=== PATIENT | female | born 1965 | race Caucasian/White ===

== ENCOUNTER 2020-04-21 10:26 | Outpatient (CLI) | payer BC, SELFPAY ==
--- NOTE | ~2020-04-21 | MM_ITS ---
EXAMINATION: MM screening [facility] BI w henry HISTORY: Screening mammogram TECHNIQUE: Craniocaudal and mediolateral oblique 3-D tomosynthesis images were obtained and synthetic 2-D images were generated. CAD analysis was submitted and interpreted. COMPARISON: 02/12/2019, 08/27/2017, 01/30/2017 BREAST PARENCHYMAL COMPOSITION: There are scattered areas of fibroglandular density. FINDINGS: There is no evidence of suspicious mass, calcification, or architectural distortion to sugg est malignancy in either breast. There has been no suspicious interval change. IMPRESSION: 1. No mammographic evidence of malignancy. 2. Recommend routine screening mammography in one year. BI-RADS Category 1: Negative Reviewed, dictated and finalized at location A. NISTRATIVE HEARING OFFICER
== END 2020-04-21 10:27 | disposition home or self-care (01) ==
LOC: ANHIMG 10:30
PROVIDERS: PCP Family Medicine Adolescent Medicine; Visit Provider Obstetrics & Gynecology
DX: Z12.31 Encounter for screening mammogram for malignant neoplasm of breast (principal)
CPT/HCPCS: 77063; 77067

== ENCOUNTER → 2020-10-21 04:11 | Outpatient (CLI) | payer BC, SELFPAY ==
[2020-10-21 18:23] LABS: SARS-CoV-2 RNA PCR Negative
== END ==
PROVIDERS: PCP Family Medicine Adolescent Medicine; Visit Provider Internal Medicine Gastroenterology
DX: Z01.812 Encounter for preprocedural laboratory examination (principal); Z20.822 Contact with and (suspected) exposure to COVID-19
CPT/HCPCS: C9803; U0003; U0005

== ENCOUNTER 2020-10-24 01:42 | Day surgery (SDC) | payer BC, SELFPAY ==
[2020-10-14 15:13] VITALS: BMI 33.5
--- NOTE | 2020-10-21 15:45 | WPDANESEPPF ---
Anes - Initial Pre Proc Eval Procedure: Operation Date: 10/24/20 07:30 Proposed Procedures p Screening Colonoscopy - Hans Siu MD Date/Time: 10/21/20 15:45 Surgeon: Hans Siu MD Pre Op Diagnosis: neoplasm screening Patient Data Age: 55 Gender: F Height: 1.7 m Weight: 97 kg Allergies Allergy/AdvReac Type Severity Reaction Status Date / Time Penicillins Allergy Intermediate Flushing Verified 10/24/20 06:18 Home Medications Medication Instructions Recorded Confirmed Type amlodipine 1 mg PO DAILY 10/14/20 10/24/20 History atorvastatin 10 mg PO DAILY 10/14/20 10/24/20 History clonidine HCl 1 mg PO DAILY 10/14/20 10/24/20 History estradiol 0.1 appful VAGINAL PRN 10/14/20 10/24/20 History valsartan-hydrochlorothiazide 1 tablet PO DAILY 10/24/20 10/24/20 History Patient hx anesthesia problems: none Family hx anesthesia problems: none PMFSH Past Medical History Medical History (Updated 10/21/20 @ 15:46 by Magnus Gordillo DO) Hyperlipidemia Hypertension PVC (premature ventricular contraction) Surgical History Surgical History (Updated 10/21/20 @ 15:46 by Magnus Gordillo DO) History of cholecystectomy Social History Social History Smoking status: Never smoker Alcohol intake: current Alcohol use details: rare-socially Substance use: never Substance use type: does not use Living arrangements: with family Gender identity (if verbalized by the patient): Female Spiritual care concerns: No Anes - Eval Final PreProcedure Day of Procedure 10/21/20 15:45 Patient weight: obese Heart: regular rate and rhythm Lungs: clear to auscultation and normal air movement Airway: Mallampati scale class II Neurological: alert and oriented Last oral intake: >/= 8 hours ASA classification: III Emergent: no Anesthetic plan: proceed Anesthesia type and monitoring: general GIVS and standard monitoring Informed Consent: The patient's anesthetic plan and its attendant risks and benefits were discussed with the patient/family/POA. Questions were solicited and answers provided to the satisfaction of the patient/family/POA.
[2020-10-24 06:21] VITALS: BP 171/81; PULSE 68; RESP 16; TEMP 36.1; O2SAT 100
[2020-10-24] MEDS: LACTATED RINGERS 1,000 ML 150 ML IV CONT (06:35)
--- NOTE | 2020-10-24 07:20 | WPDGICN ---
Assessment and Plan Assessment and plan (1) Encounter for screening colonoscopy: Code(s): Z12.11 - Encounter for screening for malignant neoplasm of colon Status: Acute Assessment and Plan: Patient presents for screening colonoscopy today. GI Consult Note Consult date/time: 10/24/20 07:20 HPI: Juana Payan is a 55 year old female Presents for screening colonoscopy. Patient reports that her weight appetite bowel movements are normal. Patient denies abdominal pain. She has had no bleeding. Family history is noncontributory. Review of Systems Review of Systems: All systems reviewed & are unremarkable except as noted in HPI and below PMFSH Past Medical History Medical History (Updated 10/24/20 @ 07:21 by Hans Siu MD) Hyperlipidemia Hypertension PVC (premature ventricular contraction) Surgical History Surgical History (Updated 10/21/20 @ 15:46 by Magnus Gordillo DO) History of cholecystectomy Social History Social History Smoking status: Never smoker Alcohol intake: current Alcohol use details: rare-socially Substance use: never Substance use type: does not use Living arrangements: with family Gender identity (if verbalized by the patient): Female Spiritual care concerns: No Meds Home Medications and Allergies Home Medications Medication Instructions Recorded Confirmed Type amlodipine 1 mg PO DAILY 10/14/20 10/24/20 History atorvastatin 10 mg PO DAILY 10/14/20 10/24/20 History clonidine HCl 1 mg PO DAILY 10/14/20 10/24/20 History estradiol 0.1 appful VAGINAL PRN 10/14/20 10/24/20 History valsartan-hydrochlorothiazide 1 tablet PO DAILY 10/24/20 10/24/20 History Allergies Allergy/AdvReac Type Severity Reaction Status Date / Time Penicillins Allergy Intermediate Flushing Verified 10/24/20 06:18 Vital Signs Vital Signs - 24 hr 10/24/20 06:21 Temperature 96.9 F L Pulse Rate 68 Respiratory Rate 16 Blood Pressure 171/81 H Pulse Oximetry 100 Exam Narrative: Physical exam reveals patient to be alert. Vital signs are stable. HEENT exam is unremarkable. Patient is anicteric. Lungs are clear to auscultation and percussion. Heart is without murmur or extra sounds. Abdominal exam bowel sounds are present soft nontender with no organomegaly. Digital external rectal exam is normal.
[2020-10-24 07:52] VITALS: BP 124/84; PULSE 62; RESP 16; O2SAT 100
[2020-10-24 08:02] VITALS: BP 122/65; PULSE 52; RESP 19; O2SAT 100
[2020-10-24 08:12] VITALS: BP 154/67; PULSE 58; RESP 17; O2SAT 100
== END 2020-10-24 08:30 | disposition home or self-care (01) ==
PROVIDERS: PCP Family Medicine Adolescent Medicine; Visit Provider Internal Medicine Gastroenterology
PROC: 0DJD8ZZ Inspection of Lower Intestinal Tract, Via Natural or Artificial Opening Endoscopic (ICD-10-PCS; CPT 45378; principal; 2020-10-24 07:30)
DX: Z12.11 Encounter for screening for malignant neoplasm of colon (principal); K64.8 Other hemorrhoids; I10 Essential (primary) hypertension; E78.5 Hyperlipidemia, unspecified; I49.3 Ventricular premature depolarization; Z90.49 Acquired absence of other specified parts of digestive tract; E66.9 Obesity, unspecified; Z68.30 Body mass index [BMI] 30.0-30.9, adult
CPT/HCPCS: 45378; J2704; J7120

== ENCOUNTER 2021-05-01 14:53 | Outpatient (CLI) | payer BC, SELFPAY ==
--- NOTE | ~2021-05-01 | MM_ITS ---
EXAMINATION: MM screening [facility] BI w henry HISTORY: Screening TECHNIQUE: Craniocaudal and mediolateral oblique 3-D tomosynthesis images were obtained and synthetic 2-D images were generated. CAD analysis was submitted and interpreted. COMPARISON: Comparison to multiple prior studies sequentially, with oldest reviewed study dated 11/26. BREAST PARENCHYMAL COMPOSITION: There are scattered areas of fibroglandular density. FINDINGS: There is no evidence of suspicious mass, calcification, or architectural distortion to sugg est malignancy in either breast. There has been no suspicious interval change. IMPRESSION: 1. No mammographic evidence of malignancy. 2. Recommend routine screening mammography in one year. BI-RADS Category 1: Negative Reviewed, dictated and finalized at location A. ASE CASE MANAGER RN
== END 2021-05-01 14:54 | disposition home or self-care (01) ==
LOC: ANHIMG 14:54
PROVIDERS: PCP Family Medicine Adolescent Medicine; Visit Provider Obstetrics & Gynecology
DX: Z12.31 Encounter for screening mammogram for malignant neoplasm of breast (principal)
CPT/HCPCS: 77063; 77067

== ENCOUNTER 2022-03-23 10:00 | Emergency (ER) | payer BC, SELFPAY ==
--- NOTE | ~2022-03-23 | XR_ITS ---
EXAMINATION: XR wrist LT min 3V DATE: 03/23/2022 10:25 INDICATION: Left wrist injury and pain. TECHNIQUE: 4 views of left wrist were obtained. COMPARISON: None. FINDINGS: Bone alignment is normal. No fracture. There is mild osteoarthritis of triscaphe joint and first carpometacarpal joint. IMPRESSION: 1. Mild polyarticular osteoarthritis. Reviewed, dictated and finalized at location A. HEALTH ASSISTANT
--- NOTE | ~2022-03-23 | XR_ITS ---
EXAMINATION: XR hand LT min 3V DATE: 03/23/2022 10:26 INDICATION: Left hand injury and pain. TECHNIQUE: 3 views of left hand were obtained. COMPARISON: None. FINDINGS: Bone alignment is normal. No fracture. There is mild osteoarthritis of first carpometacarpa l joint and some of the interphalangeal joints. There is moderate osteoarthritis of first interphalan geal joint. IMPRESSION: 1. Polyarticular osteoarthritis. Reviewed, dictated and finalized at location A. RAFT MOTOR MECHANIC
--- NOTE | 2022-03-23 10:04 | ED.UPPEXIN ---
HPI - Extremity Injury (Upper) General Chief Complaint: Extremity Injury, Upper Stated Complaint: Lt Wrist Pain Due To Fall Time Seen by Provider: 03/23/22 10:04 Source: patient Mode of arrival: ambulatory Limitations: no limitations History of Present Illness HPI narrative: Ms Payan is a 56-year-old female patient presenting to the clinic today with complaints of left wrist pain due to a fall last night around 7:00 p.m.. She reports she was walking her dog when the dog pulled and this tripped her and caused her to fall with her arms extended. Has pain to the left radial wrist and left hand over the 5th finger. Very mild swelling and bruising noted. Has iced and elevated and wrapped her wrist/hand with an Zak wrap. Also has abrasions/bruising to the left knee and chin. Denies any loss of consciousness, hitting her head, or neck pain. Last tetanus was in 2017 Related Data Home Medications Medication Instructions Recorded Confirmed estradiol 0.01% (0.1 mg/gram) 0.1 appful vaginal PRN 10/14/20 07/31/21 vaginal cream Allergies Allergy/AdvReac Type Severity Reaction Status Date / Time fluvastatin AdvReac Intermediate Chest Pain Verified 03/23/22 10:04 Penicillins AdvReac Intermediate Flushing Verified 03/23/22 10:04 propranolol AdvReac Intermediate Other Verified 03/23/22 10:04 ciprofloxacin AdvReac Mild Rash Verified 03/23/22 10:04 Review of Systems Review of Systems: Pertinent positives per HPI. Patient denies any fever, chills, rash, headache, visual changes, dizziness, cough, runny nose, sore throat, shortness of breath, chest pain, palpitations, nausea, vomiting, diarrhea, constipation, abdominal pain, or any urinary issues. FOR[facility]LY [facility] Past Medical History Medical History Hyperlipidemia Hypertension PVC (premature ventricular contraction) Surgical History Surgical History History of cardiac radiofrequency ablation (2011) For PVCs History of cholecystectomy (1990) History of hysterectomy with bilateral oophorectomy (2014) Family History Family History Father Hypertension Mother Heart disease Social History Social History Smoking status: Never smoker Second hand tobacco smoke exposure: No Alcohol intake: current Alcohol use details: rare-socially Substance use: never Substance use type: does not use Living arrangements: with family Occupation/Education: occupation Gender identity (if verbalized by the patient): Female Sexual Orientation (if Verbalized by the Patient): Straight or Heterosexual Spiritual care concerns: No Agree to blood products: Yes Comments At the time of my signature, I reviewed and agree with the nursing past medical, surgical, social, and family history. There is no relevant family history pertinent to the patient complaint. Exam Narrative: General: Well-developed, well nourished, in no apparent distress Head: Normocephalic, atraumatic. Cardio: Regular rate and rhythm, s1 and s2 normal, no murmur appreciated. Resp: Clear to auscultation bilaterally, no rhonchi, rales, wheezing or rubs. Musculoskeletal: No deformity, abrasion was some mild bruising noted to the left anterior knee, small abrasion to the anterior chin, bruising and mild swelling to the radial aspect of the left wrist as well as some tenderness to palpation over this area and the left 5th finger, grossly normal range of motion of the left knee, limited radial and ulnar deviation range of motion due to pain, is able to flex and extend left wrist with mild pain, flexion and extension of left 5th finger within normal limits, muscle strength strong and equal, peripheral pulse strong,no cyanosis, normal gait and station Course Course Emergency Course:
[2022-03-23 10:08] VITALS: BP 162/92; PULSE 66; RESP 18; TEMP 36.3; O2SAT 100
== END 2022-03-23 10:39 | disposition home or self-care (01) ==
PROVIDERS: Emergency Provider Nurse Practitioner Family; PCP Family Medicine Adolescent Medicine
DX: S63.502A Unspecified sprain of left wrist, initial encounter (principal); S63.92XA Sprain of unspecified part of left wrist and hand, initial encounter; W01.0XXA Fall on same level from slipping, tripping and stumbling without subsequent striking against object, initial encounter; Y93.K1 Activity, walking an animal; E78.5 Hyperlipidemia, unspecified; I10 Essential (primary) hypertension
CPT/HCPCS: 73110; 73130; 99213; G0463

== ENCOUNTER 2022-05-03 09:53 | Outpatient (CLI) | payer BC, SELFPAY ==
--- NOTE | ~2022-05-03 | MM_ITS ---
EXAMINATION: MM screening [facility] BI w henry HISTORY: Screening mammogram TECHNIQUE: Craniocaudal and mediolateral oblique 3-D tomosynthesis images were obtained and synthetic 2-D images were generated. CAD analysis was submitted and interpreted. COMPARISON: 05/01/2021, 04/21/2020, 02/12/2019, 08/27/2017 BREAST PARENCHYMAL COMPOSITION: There are scattered areas of fibroglandular density. FINDINGS: No suspicious mass, calcification, or architectural distortion are identified in either [place] ast to suggest malignancy. There has been no suspicious interval change. IMPRESSION: 1. No mammographic evidence of malignancy. 2. Recommend routine screening mammography in one year. BI-RADS Category 1: Negative Reviewed, dictated and finalized at location A. EL SERVICE TECHNICIAN
== END 2022-05-03 09:54 | disposition home or self-care (01) ==
PROVIDERS: PCP Family Medicine Adolescent Medicine; Visit Provider Obstetrics & Gynecology
DX: Z12.31 Encounter for screening mammogram for malignant neoplasm of breast (principal)
CPT/HCPCS: 77063; 77067

== ENCOUNTER → 2022-07-26 13:46 | Outpatient (CLI) | payer BC, SELFPAY ==
--- NOTE | ~2022-07-26 | XR_ITS ---
EXAMINATION: XR chest 2V DATE: 07/26/2022 14:11 INDICATION: Left-sided pleuritic chest pain. TECHNIQUE: Frontal and lateral views of the chest were obtained. COMPARISON: None. FINDINGS: Calcified pulmonary nodules are consistent with old granulomatous disease. No pleural effus ion or pneumothorax. The heart size is normal. There is mild chronic anterior wedging of 2 midthoraci c vertebral bodies. IMPRESSION: 1. No acute cardiopulmonary disease. Reviewed, dictated and finalized at location A.
== END ==
PROVIDERS: PCP Family Medicine Adolescent Medicine; Visit Provider Family Medicine Adolescent Medicine
DX: R07.81 Pleurodynia (principal)
CPT/HCPCS: 71046

== ENCOUNTER 2023-08-02 14:20 | Outpatient (CLI) | payer BC, SELFPAY ==
--- NOTE | ~2023-08-02 | MM_ITS ---
EXAMINATION: MM screening [facility] BI w henry HISTORY: Screening TECHNIQUE: Craniocaudal and mediolateral oblique 3-D tomosynthesis images were obtained and synthetic 2-D images were generated. CAD analysis was submitted and interpreted. COMPARISON: Comparison to multiple prior studies sequentially, with oldest reviewed study dated 01/30. BREAST PARENCHYMAL COMPOSITION: Not dense: There are scattered areas of fibroglandular density. FINDINGS: There is no evidence of suspicious mass, calcification, or architectural distortion to sugg est malignancy in either breast. There has been no suspicious interval change. IMPRESSION: 1. No mammographic evidence of malignancy. 2. Recommend routine screening mammography in one year. BI-RADS Category 1: Negative Reviewed, dictated and finalized at location B.
== END 2023-08-02 14:21 | disposition home or self-care (01) ==
LOC: ANHIMG 14:22
PROVIDERS: PCP Family Medicine Adolescent Medicine; Visit Provider Obstetrics & Gynecology
DX: Z12.31 Encounter for screening mammogram for malignant neoplasm of breast (principal)
CPT/HCPCS: 77063; 77067

== ENCOUNTER 2023-12-19 07:52 | Outpatient (CLI) | payer BC, SELFPAY ==
--- NOTE | ~2023-12-19 | US_ITS ---
EXAMINATION: US carotid duplex BI DATE: 12/19/2023 08:33 INDICATION: Carotid bruit TECHNIQUE: Grayscale, color Doppler, and pulsed Doppler images of the cervical carotid arteries were obtained. The degree of vessel stenosis is placed in one of the following categories: normal, <50%, 5 0-69%, >=70% but less than near-occlusion, near-occlusion, or total occlusion. Note that percent sten osis relative to normal distal artery lumen diameter is indirectly measured from velocity measurement s as described by Kadeem, et al. Radiology 2003; 229:340-346. Notes: Normal: Peak systolic velocity <125 centimeters/sec and no plaque <50%. Peak systolic velocity <125 ( EDV <40; ICA/CCA PSV ratio <2.0; used these factors only a tandem lesions or low cardiac output or co ntralateral disease) 50-69 %: PSV 125-230 (EDV 40-100; ratio 2-4) >= 70% but less than near occlusion: PSV greater than 230 (EDV > 100; ratio> 4.0) Near Occlusion: PSV that is variable; markedly narrowed lumen Occlusion: Absent flow on color/spectral Doppler and no lumen on hudson scale. COMPARISON: None. FINDINGS: RIGHT: The right common carotid artery (CCA) peak systolic velocity (PSV) is 83 cm/s. The right internal car otid artery (ICA) PSV is 67 cm/s. The right ICA end-diastolic velocity (EDV) is 19 cm/s. The right IC A/CCA PSV ratio is 1.1. The external carotid artery (ECA) PSV is 92 cm/s. There is antegrade flow in the right vertebral artery. LEFT: The left CCA PSV is 77 cm/s. The left ICA PSV is 74 cm/s. The left ICA EDV is 34 cm/s. The left ICA/C CA PSV ratio is 1.1. The ECA PSV is 80 cm/s. There is antegrade flow in the left vertebral artery. IMPRESSION: 1. Less than 50% stenosis in the right internal carotid artery by sonographic criteria. 2. Less than 50% stenosis in the left internal carotid artery by sonographic criteria. Reviewed, dictated and finalized at location B. IMPRESSION: 1. Less than 50% stenosis in the right internal carotid artery by sonographic c alexis. 2. Less than 50% stenosis in the left internal carotid artery by sonographic andres arcos.
== END 2023-12-19 07:53 | disposition home or self-care (01) ==
PROVIDERS: PCP Family Medicine Adolescent Medicine; Visit Provider Internal Medicine Cardiovascular Disease
DX: R09.89 Other specified symptoms and signs involving the circulatory and respiratory systems (principal); I65.23 Occlusion and stenosis of bilateral carotid arteries
CPT/HCPCS: 93880

== ENCOUNTER 2024-01-21 11:24 | Outpatient (CLI) | payer BC, SELFPAY ==
--- NOTE | ~2024-01-21 | XR_ITS ---
XR shoulder RT min 2V Ordering provider: Frandy Hein MD History: . M25.511 - Pain in right shoulder . Comparison: None. FINDINGS: BONES: No acute fracture or dislocation. Degenerative changes in the area of the greater tuberosity. JOINT SPACES: The acromioclavicular joint shows mild osteoarthritic changes. The glenohumeral joint i s normal. SOFT TISSUES: Normal. IMPRESSION: No acute osseous abnormality right shoulder. Mild osteoarthritic changes of the acromioclavicular joint. Degenerative changes in the humeral head which may indicate tendinosis of the supraspinatus tendon. Reviewed, dictated and finalized at location A. SECURITY ANALYST IMPRESSION: No acute osseous abnormality right shoulder. Mild osteoarthritic changes of the acromioclavicular joint. Degenerative changes in the humeral head which may indicate tendinosis of the s upraspinatus tendon.
== END 2024-01-21 11:25 | disposition home or self-care (01) ==
LOC: MICIMG 11:26
PROVIDERS: PCP Family Medicine Adolescent Medicine; Visit Provider Family Medicine Adolescent Medicine
DX: M25.511 Pain in right shoulder (principal)
CPT/HCPCS: 73030

== ENCOUNTER 2024-01-31 08:39 | Outpatient (CLI) | payer BC, SELFPAY ==
--- NOTE | ~2024-01-31 | MR_ITS ---
EXAMINATION: MR shoulder RT wo con DATE: 01/31/2024 09:43 INDICATION: Right shoulder pain. TECHNIQUE: Magnetic resonance imaging (MRI) of the right shoulder was performed without intravenous c ontrast. Sequences included axial PD-weighted FS FSE, coronal oblique PD-weighted FS FSE and T2-weigh marine FS FSE, and sagittal oblique T2-weighted FS FSE and T1-weighted FSE. COMPARISON: Right shoulder radiographs 01/21/2024 FINDINGS: Coracoacromial arch: The acromion undersurface is curved in morphology (type II). There is severe acromioclavicular joint osteoarthritis. There is mild subacromial/subdeltoid bursitis. Rotator cuff: There is moderate supraspinatus and infraspinatus tendinopathy. There is calcific tendinitis of supra spinatus and infraspinatus. No tear. Teres minor tendon is normal. There is mild subscapularis tendin opathy. There is no asymmetric fatty atrophy of the rotator cuff muscle bellies. Biceps tendon and glenoid labrum: Biceps tendon is in bicipital groove. There is mild intra-articular biceps tendinopathy. The glenoid labrum is normal. Fluid: There is no glenohumeral joint effusion. Bones/cartilage: There is partial-thickness cartilage loss of glenoid and humeral head. IMPRESSION: 1. Moderate rotator cuff tendinopathy with calcific tendinitis. No tear. 2. Mild glenohumeral joint chondrosis. 3. Severe acromioclavicular joint osteoarthritis. 4. Mild subacromial/subdeltoid bursitis. 5. Mild intra-articular biceps tendinopathy. Reviewed, dictated and finalized at location A. F ENGINEER PRODUCTION
== END 2024-01-31 08:40 | disposition home or self-care (01) ==
LOC: GOSHIMG 08:42
PROVIDERS: PCP Orthopaedic Surgery; Visit Provider Family Medicine Adolescent Medicine
DX: M25.511 Pain in right shoulder (principal)
CPT/HCPCS: 73221

== ENCOUNTER 2025-01-25 06:30 | Emergency (ER) | payer BC, SELFPAY ==
--- OUTSIDE RECORDS SUMMARY | 2024-08-10 02:50 | XMS_ITS ---
Author Organization [facility] Address [address] [place], [place] [id number] Care Team Providers Care Exercise Teacher Name Role Phone LEW GUILLEN Unavailable [phone] Frandy Hein Unavailable Unavailable REASON FOR VISIT *Heel pain follow up Encounters Encounter Location Date Provider Diagnosis [facility] [place] [address] [place], [place] [id number] 08/10/2024 LEW GUILLEN Plan Of Treatment No Information Progress Notes * Juana PAYANDOB:[birth year] (59 yo F)Acc No.[id number]:08/10/2024 Patient: Juana Freed Provider: Jenifer Guillen DPM :1965 A ge:58 Y S ex:Female Date:08/10/2024 [id number] Subjective: * Chief Complaints: * * Heel pain follow up Billing Information: * Procedure Codes: * Electronic signature of LEW GUILLEN DPM on 01/25/2025 at 06:32 AM CARDROOM DRAWING RUNNER Sign off status: Pending * Provider: Jenifer Guillen DPM Date: 0 08/10/2024 Generated for Printi ng/Faedg/eTransmitting on: 1 03/28/2024 06:32 AM CARDROOM DRAWING RUNNER
[2025-01-25] VITALS (7 sets, daily range): BP systolic 133–184; BP diastolic 70–86; PULSE 54–81; RESP 16–24; O2SAT 98–100
--- NOTE | ~2025-01-25 | XR_ITS ---
Examination: XR chest 2V Clinical History: CHEST PAIN Comparison: 07/26/2022 Technique: PA and Lateral Findings: Cardiomediastinal silhouette normal size and configuration. Lungs clear. Left basilar calcified granuloma, and hilar calcifications. No acute bony abnormality. IMPRESSION: 1. No acute cardiopulmonary findings. Reviewed, dictated and finalized at location R. [employer]CTION[employer] ANA[employer]
--- OUTSIDE RECORDS SUMMARY | 2025-01-25 06:32 | XMS_ITS | Clinical Summary ---
Author Organization [facility] [address] Address [address] [place] [address] Care Team Providers Care Help Desk Manager Name Role Phone Duane Yarbrough MD Unavailable Frandy Hein MD Primary Care Prov ider Allergies Active Allergy Reactions Criticality Noted Date Comments Penicillins Flushing (skin) Low Medications atorvastatin (LIPITOR) 10 mg tablet Take 1 tablet (10 mg total) by mouth daily 2 8 Active valsartan-hydroch lorothiazide (DIOVAN-HCT) 320-25 mg per tablet Take 1 tablet by mouth daily 3 8 Active amLODIPine (NORVASC) 5 mg tablet Take 1 tablet (5 mg total) by mouth 2 (two) times a day 5 8 Active cloNIDine (CATAPRES) 0.1 mg tabletIndications :Benign hypertension Take 1 tablet (0.1 mg total) by mouth 2 (two) times a day 180 tablet 3 4 Active estradioL (ESTRACE) 0.01 % (0.1 mg/gram) vaginal cream INSERT 1/2 GRAM VAGINALLY THREE TIMES A WEEK 5 Active calcium carbonate-vitamin D3 1,500 mg (600mg elemental) -800 unit per tablet Take 2 tablets by mouth daily Active dmbws-7-owq-epa-d pa-fish oil 1,050-1,200 mg capsule 1 capsule Active Active Problems Problem Noted Date Diagnosed Date Left carotid bruit 12/09/2023 Dizzy spells 08/28/2022 PVC's (premature ventricular contractions) 08/14 Nonrheumatic mitral valve regurgitation 08/06/19 Nonrheumatic tricuspid valve regurgitation 08/05 Nonrheumatic pulmonary valve insufficiency 08/05 Mixed hyperlipidemia 08/05/2020 Snoring 08/05/2020 Excessive daytime sleepiness 08/05/2020 Sleep disorder breathing 08/05/2020 Family history of premature CAD 08/05/2020 Palpitations 08/05/2020 Abnormal stress test 05/20/2017 Atypical chest pain 05/20/2017 Overweight (BMI 25.0-29.9) 05/20/2017 Shortness of breath 07/11/2013 Overview (06/01/2016): SHORTNESS OF BREATH Benign hypertension 07/11/2013 Overview (06/01/2016): BENIGN HYPERTENSION Paroxysmal ventricular tachycardia 07/11/2013 Overview (06/01/2016): PAROX VENTRIC TACHYCARD Sinoatrial node dysfunction 02/18/2012 Overview (06/01/2016): SINOATRIAL NODE DYSFUNCT History of radiofrequency ab lation (RFA) procedure for cardiac arrhythmia 02/18/2012 Overview (06/01/2016): S/P ablation of ventricular arrhythmia Encounters Date Type Department Care Team Description 01/13/2025 Results Follow-Up [facility] Cardiology [address] [place] [address] [place] [phone] Arsenio Bob MD Stress Echo Exercise W Doppler/CF 01/12/2025 9:15 AM AUTO BODY REPAIRMAN Ancillary Procedure [facility] Cardiology [address] [place] [address] [place] [phone] Atypical chest pain 12/21/2024 8:30 AM CDT Office Visit [facility] Cardiology [address] [place] [address] [place] [phone] Arsenio Bob MD Atypical chest pain (Primary Dx); Nonrheumatic mitral valve regurgitation; Nonrheumatic pulmonary valve insufficiency; Nonrheumatic tricuspid valve regurgitation; PVC's (premature ventricular contractions); Mixed hyperlipidemia from Last 3 Months Surgical History Surgery Date Site/Laterality Comments HYSTERECTOMY ABLATION Medical History Medical History Date Comments Hypertension Cardiac rhythm disturbance Hyperlipidemia Heart murmur Family History Medical History Relation Name Comments Atrial fibrillation Brother Brain Aneurysm Father CAuse of deat h, 76 y.o. Hypertension Father Atrial fibrillation Mother Coronary artery disease Mother H/O [place] and stents in her 50's Heart failure Mother Hypertension Mother PAD Mother Peripheral vascular disease Mother pacemaker Mother Thyroid disease Sister Relation Name Status Comments Brother Alive Father (Age 78) Mother (Age 81) Sister Alive Social History Tobacco Use Types Packs/Day Years Used Date Smoking Tobacco: Never Smokeless Tobacco: Never Tobacco Cessation:Counseling Given: Not Answered Alcohol Use Standard Drinks/Week Comments Yes 0 (1 standard drink = 0.6 oz pur e alcohol) Comments Unknown Sex and Gender Information Value Date Recorded Sex Assigned at Not on file Legal Sex Female 2:05 AM AUTO BODY REPAIRMAN Gender Identity Not on file Sexual Orientation Not on file Last Filed Vital Signs Vital Sign Reading Time Taken Comments Blood Pressure 126/82 12/21/2024 8:45 AM CDT Pulse 66 12/21/2024 8:45 AM CDT Temperature - - Respiratory Rate - - Oxygen Saturation 99% 12/21/2024 8:45 AM CDT Inhaled Oxygen Concentration - - Weight 79.8 kg (176 lb) 12/21/2024 8:45 AM CDT Height 172.7 cm (5' 8) 12/21/2024 8:45 AM CDT Body Mass Index 26.76 12/21/2024 8:45 AM CDT Plan of Treatment Health Maintenance Due Date Last Done Comments Breast Cancer Screening-Mammogram 1965 Colon Cancer Screening-Colonoscopy 1964 Depression Screening 1964 Hepatitis C Screening 1964 Hepatitis B Screening 1982 Regular Well Visit/Exam 18-64 1982 Zoster Vaccine (1 of 2) 2014 Influenza Vaccine (#1) 2024 , 02/11/2019, 01/28/2017 DTaP/Tdap/Td Vaccine (2 - Td or Tdap) 01/28/2027 01/28/2017, 12/05/2012 Pneumococcal vaccine <65 Aged Out No longer eligible based on patient's age to complete this topic Procedures Procedure Name Priority Date/Time Associated Diagnosis Comments STRESS ECHO EXERCISE W DOPPLER/CF WO CONTRAST Routine 01/12/2025 10:23 AM AUTO BODY REPAIRMAN Atypical chest pain POCT LIPID PANEL Routine 12/21/2024 8:45 AM CDT Mixed hyperlipidemia from Last 3 Months Results * STRESS ECHO EXERCISE W DOPPLER/CF WO CONTRAST (01/12/2025 10:23 AM AUTO BODY REPAIRMAN) Anatomical Region Laterality Modality Ultrasound 01/12/2025 9:21 AM AUTO BODY REPAIRMAN Narrative 01/12/2025 12:18 PM AUTO BODY REPAIRMAN [facility] Cardiology [address] [facility] [address], [place] [address] [address] [facility] [address], [place] [address] P:[phone] P:[phone] Echocardiographic Report Patient Name: JUANA PAYAN J : 1965 Study Date: 01/12/2025 9:21:44 AM Sex: F Wholesale Manager: Glenis Gamboa)([place]), [facility] Location: [facility] Provider: ARSENIO BOB Height(Cm): 173 BSA: 1.96 Weight(Kg): 79.8 Heart Rate: 53 BP: 126 / 82 Quality: Adequate Order Provider: ARSENIO BOB PROCEDURES: Stress Echo Report: Treadmill stress echocardiogram. INDICATIONS: Medications: amLODIPine (NORVASC) 5 mg tablet atorvastatin (LIPITOR) 10 mg tablet calcium carbonate-vitamin D3 1,500 mg (600mg elemental) -800 unit per tablet cloNIDine (CATAPRES) 0.1 mg tablet estradioL (ESTRACE) 0.01 % (0.1 mg/gram) vaginal cream bkcwa-4-iya-fjo-qrm-hrcq oil 1,050-1,200 mg capsule valsartan-hydrochlorothiazide (DIOVAN-HCT) 320-25 mg per tablet Stress test monitored by: Fatemeh Chavez, RN Melanie Siu, IRIS [id number] Other chest pain. FINDINGS: Stress Echo: Protocol - Mohit Protocol. Exercise Time - 9.43 min Baseline Heart Rate - 59 Peak Heart Rate - 147 Predicted Maximal Heart Rate - 160 85% MPHR - 136 Baseline BP - 152/88 Peak BP - 179/86 Rate Pressure Product - 76170 METS Achieved - 10.10 Percent Predicted Maximal HR Achieved - 111 % Interpretation Site: Exam was interpreted at [facility]. Performance: Above average exercise functional capacity. Hemodynamic Response: Normal blood pressure response. Arrhythmia: No exercise induced arrhythmias. Termination: Fatigue. Resting ECG: Normal EKG. Exercise ECG: Abnormal exercise ECG consistent with ischemia although significant and severe artifact does limit interpretation. Resting LV Function: Normal left ventricular size, normal systolic function, normal wall thickness with no segmental wall motion abnormalities at rest. EF 65%. Post Stress LV Function: Post exercise left ventricular global systolic contractility is hyperdynamic. Mid to basal inferior hypokinesis with exercise. Ejection fraction 65-70%. These segments of the LV are hypokinetic: basal inferior segment and mid inferior segment. CONCLUSIONS: Abnormal exercise ECG consistent with ischemia although significant and severe artifact does limit interpretation. No exercise induced chest pain. Echocardiographic evidence of ischemia. Above average exercise capacity. Electronically Signed By: Arsenio Bob MD 01/12/2025 12:18:02 PM AUTO BODY REPAIRMAN Procedure Note Arsenio Bob MD - 01/12/2025 [facility] Medical [facility] Cardiology [address] [facility] [address], [place] [address] [address] [facility] [address], [place] [address] P:[phone] P:[phone] Echocardiographic Report Patient Name: JUANA PAYAN J : 1965 Study Date: 01/12/2025 9:21:44 AM Sex: F Wholesale Manager: Glenis Gamboa)([place]), [facility] Location: ID Ref Provider: ARSENIO BOB Height(Cm): 173 BSA: 1.96 Weight(Kg): 79.8 Heart Rate: 53 BP: 126 / 82 Quality: Adequate Order Provider: ARSENIO BOB PROCEDURES: Stress Echo Report: Treadmill stress echocardiogram. INDICATIONS: Medications: amLODIPine (NORVASC) 5 mg tablet atorvastatin (LIPITOR) 10 mg tablet calcium carbonate-vitamin D3 1,500 mg (600mg elemental) -800 unit pertablet cloNIDine (CATAPRES) 0.1 mg tablet estradioL (ESTRACE) 0.01 % (0.1 mg/gram) vaginal cream obpnr-0-moe-frh-cel-xbmp oil 1,050-1,200 mg capsule valsartan-hydrochlorothiazide (DIOVAN-HCT) 320-25 mg per tablet Stress test monitored by: Fatemeh Chavez, IRIS Siu RN [id number] Other chest pain. FINDINGS: Stress Echo: Protocol - Mohit Protocol. Exercise Time - 9.43 min Baseline Heart Rate - 59 Peak Heart Rate - 147 Predicted Maximal Heart Rate - 160 85% MPHR - 136 Baseline BP - 152/88 Peak BP - 179/86 Rate Pressure Product - 36864 METS Achieved - 10.10 Percent Predicted Maximal HR Achieved - 111 % Interpretation Site: Exam was interpreted at [facility]. Performance: Above average exercise functional capacity. Hemodynamic Response: Normal blood pressure response. Arrhythmia: No exercise induced arrhythmias. Termination: Fatigue. Resting ECG: Normal EKG. Exercise ECG: Abnormal exercise ECG consistent with ischemia although significant andsevere artifact does limit interpretation. Resting LV Function: Normal left ventricular size, normal systolic function, normal wallthickness with no segmental wall motion abnormalities at rest. EF 65%. Post Stress LV Function: Post exercise left ventricular global systolic contractility ishyperdynamic. Mid to basal inferior hypokinesis with exercise. Ejection fraction 65-70%. Thesesegments of the LV are hypokinetic: basal inferior segment and mid inferior segment. CONCLUSIONS: Abnormal exercise ECG consistent with ischemia although significant andsevere artifact does limit interpretation. No exercise induced chest pain. Echocardiographic evidence of ischemia. Above average exercise capacity. Electronically Signed By: Arsenio Bob MD 01/12/2025 12:18:02 PM AUTO BODY REPAIRMAN Arsenio Bob MD CV ECHO PROCEDURES Final Result * POCT lipid panel (12/21/2024 8:45 AM CDT) Cholesterol, POC 140 <200 MG/DL HDL, POC 64 >=40 mg/dL Triglycerides, POC 44 <=149 mg/dL LDL Cholesterol POC 67 <=129 mg/dL Non-HDL Cholesterol, POC 76 NONE mg/dL Cholesterol Total, POC 140 30 - 199 mg/dL Capillary blood 12/21/2024 8 :45 AM CDT Arsenio Bob MD POINT OF CARE TEST ORDERA BLES Final Result from Last 3 Months Insurance [facility] PPO ID BL CHOICE PRF PPO [place] BLUE ACCESS ID Care Teams Help Desk Manager Relationship Specialty Start Date End Date Frandy Hein MD [address] [place] [address] PCP - General Family Medicine 06/14/20 Duane Yarbrough MD [address] [place] [address] 06/03/17
--- OUTSIDE RECORDS SUMMARY | 2025-01-25 06:32 | XMS_ITS | Clinical Summary ---
Author Organization [facility] Address [facility] [place] [address] Care Team Providers Care Motor Overhauler Name Role Phone None, Provider MD Primary Care Provider Unavaila ble Social History Tobacco Use Types Packs/Day Years Used Date Smoking Tobacco: Never Assessed Comments Unknown Sex and Gender Information Value Date Recorded Sex Assigned at Not on file Legal Sex Female 7:24 PM CDT Gender Identity Not on file Sexual Orientation Not on file Plan of Treatment Health Maintenance Due Date Last Done Comments Cervical Cancer Screening Pa p Smear (Age 30 to 64) Every 3 Years 1964 Colorectal Cancer Screening Colonoscopy (10 Years) 1964 Annual Physical 09/26/1967 Hepatitis C 1982 Cervical Cancer Screening Pa p with HPV Testing (Age 30 to 64) Every 5 Years 1994 Cervical Cancer Screening wi th HPV 1994 Mammogram Screening 2004 Pneumococcal Vaccine: 50+ Years (1 of 1 - PCV) 2014 Zoster Vaccines (1 of 2) 2014 COVID-19 Vaccine (2024-2 6 season) 2024 Influenza Adult (#1) 2024 12/08/2019, 02/11/2019, 01/28/2017 DTaP, Tdap and Td Vaccines ( 2 - Td or Tdap) 01/28/2027 01/28/2017 RSV Immunization or 60+ Years (1 - 1-dose 75+ series) 09/26/2039 Hepatitis A Vaccines Aged Out No long er eligible based on patient's age to complete this topic Meningococcal B Vaccine Aged Out No l onger eligible based on patient's age to complete this topic Meningococcal Vaccine Aged Out No ulices ovi eligible based on patient's age to complete this topic RSV Immunizations Under 20 Months Aged Out No longer eligible b ased on patient's age to complete this topic Insurance [facility] Care Teams Motor Overhauler Relationship Specialty Start Date End Date None, Provider, PCP - General UNKNOWN PHYSICIAN SPECIALTY 05/10/22
--- NOTE | 2025-01-25 06:35 | ECG_ITS ---
Test Date: 2025-01-25 06:47:16 Measurements Intervals [place] Rate: 65 P: 81 NC: 201 QRS: 43 QRSD: 93 T: 61 QT: 438 QTc: 457 Interpretive Statements SINUS RHYTHM DELAYED PRECORDIAL R/S TRANSITION BORDERLINE ST-T WAVE ABNORMALITY- INF/LAT LEADS BASELINE ARTIFACT- I, III, AVR, AVL, AVF BORDERLINE ECG No previous ECG available for comparison Electronically Signed On 01-25-2025 07:51:46 MANAGER SOCIAL WORK by Ayush Whitley D.O.
[2025-01-25 06:53] LABS: Hematocrit 39.8 % (37.0-47.0); Hemoglobin 13.6 g/dL (12.0-15.0); Immature Granulocyte Percent A 0.2 % (0-0.5); Lymphocytes Absolute Auto 1.78 K/mm3 (0.9-3.2); Mean Corpuscular HGB Conc 34.2 g/dl (32-36); Mean Corpuscular Hemoglobin 30.3 pg (26-34); Mean Corpuscular Volume 88.6 fl (80-100); Nucleated Red Blood Cells Absolute Auto 0.000 K/mm3 (0.0-0.012); Nucleated Red Blood Cells Perc 0.0 % (0.0-0.2); Platelet Count Result 249 k/mm3 (150-375); Red Blood Count 4.49 M/mm3 (4.2-5.4); White Blood Count 4.3 K/mm3 (4.5-10.0)
[2025-01-25 07:08] LABS: INR 1.0; Partial Thromboplastin Time 32.5 Seconds (22.3-36.8); Prothrombin Time 13.5 Seconds (11.1-14.7)
[2025-01-25 07:11] LABS: Alanine Aminotransferase 33 U/L (6-35); Albumin Level 4.8 g/dL (3.5-5.1); Alkaline Phosphatase 54 U/L (38-126); Anion Gap 6 mmol/L (4-12); Aspartate Amino Transferase 35 U/L (14-36); Bilirubin,Total 1.9 mg/dL (0.2-1.3); Blood Urea Nitrogen 18 mg/dL (7-17); Calcium 9.8 mg/dL (8.4-10.2); Carbon Dioxide 32 mmol/L (22-30); Chloride 101 mmol/L (98-107); Estimated CRCL calculation 72 ml/min; Estimated Glomerular Filt Rate > 60; Glucose 105 mg/dL (65-110); Lipase 144 U/L (23-300); Potassium 3.1 mmol/L (3.4-5.0); Sodium 139 mmol/L (137-145); Total Protein 8.4 g/dL (6.3-8.2)
[2025-01-25 07:18] LABS: Troponin I < 0.012 ng/mL (0.000-0.034)
[2025-01-25] MEDS: ASPIRIN 81 MG CHEWABLE TABLET 324 MG PO (07:23)
--- OUTSIDE RECORDS SUMMARY | 2025-01-25 07:44 | XMS_ITS | Clinical Summary ---
Author Organization [facility] [address] Address [address] [place] [address] Care Team Providers Care Sheet Mill Supervisor Name Role Phone Duane Yarbrough MD Unavailable [...] Take 2 tablets by mouth daily Active bxnjm-4-fou-epa-d pa-fish oil 1,050-1,200 mg capsule 1 capsule [...] Department Care Team Description 01/13/2025 Results Follow-Up [facility] Cardiology [address] [place] [address] [place] [phone] Arsenio Bob MD Stress Echo Exercise W Doppler/CF 01/12/2025 9:15 AM CATH LABORATORY TECHNICIAN Ancillary Procedure [facility] Cardiology [address] [place] [address] [place] [phone] Atypical chest pain 12/21/2024 8:30 AM CDT Office Visit [facility] Cardiology [address] [place] [address] [place] [phone] Arsenio Bob MD Atypical chest pain (Primary [...] fibrillation Mother Coronary artery disease Mother H/O [place] and stents in her 50's Heart failure [...] on file Legal Sex Female 2:05 AM CATH LABORATORY TECHNICIAN Gender Identity Not on file Sexual Orientation [...] DOPPLER/CF WO CONTRAST Routine 01/12/2025 10:23 AM CATH LABORATORY TECHNICIAN Atypical chest pain POCT LIPID PANEL Routine 12/21/2024 8:45 AM CDT Mixed hyperlipidemia from Last 3 Months Results * STRESS ECHO EXERCISE W DOPPLER/CF WO CONTRAST (01/12/2025 10:23 AM CATH LABORATORY TECHNICIAN) Anatomical Region Laterality Modality Ultrasound 01/12/2025 9:21 AM CATH LABORATORY TECHNICIAN Narrative 01/12/2025 12:18 PM CATH LABORATORY TECHNICIAN [facility] Medical [facility] Cardiology [address] [facility] [address] [address] [address] [facility] [address], [place] [address] P:[phone] P:[phone] Echocardiographic Report Patient Name: JUANA PAYAN J : 1965 Study Date: 01/12/2025 9:21:44 AM Sex: F Scientific Informatics Analyst: Glenis Gamboa)([place]), [facility] Location: [facility] Provider: ARSENIO BOB Height(Cm): 173 BSA: 1.96 [...] (ESTRACE) 0.01 % (0.1 mg/gram) vaginal cream vlgdm-0-est-gwr-uzn-siwn oil 1,050-1,200 mg capsule valsartan-hydrochlorothiazide (DIOVAN-HCT) 320-25 [...] BP - 179/86 Rate Pressure Product - 53312 METS Achieved - 10.10 Percent Predicted Maximal HR Achieved - 111 % Interpretation Site: Exam was interpreted at [facility]. Performance: Above average exercise functional capacity. [...] By: Arsenio Bob MD 01/12/2025 12:18:02 PM CATH LABORATORY TECHNICIAN Procedure Note Arsenio Bob MD - 01/12/2025 [facility] Medical [facility] Cardiology [address] [facility] [address], [place] [address] [address] [facility] [address], [place] [address] P:[phone] P:[phone] Echocardiographic Report Patient Name: JUANA PAYAN J : 1965 Study Date: 01/12/2025 9:21:44 AM Sex: F Scientific Informatics Analyst: Glenis Gamboa)([place]), [facility] Location: [place] Ref Provider: ARSENIO BOB Height(Cm): 173 BSA: [...] (ESTRACE) 0.01 % (0.1 mg/gram) vaginal cream mvazn-6-zxw-yhr-qiz-leyo oil 1,050-1,200 mg capsule valsartan-hydrochlorothiazide (DIOVAN-HCT) 320-25 [...] BP - 179/86 Rate Pressure Product - 41560 METS Achieved - 10.10 Percent Predicted Maximal HR Achieved - 111 % Interpretation Site: Exam was interpreted at [facility]. Performance: Above average exercise functional capacity. [...] By: Arsenio Bob MD 01/12/2025 12:18:02 PM CATH LABORATORY TECHNICIAN Arsenio Bob MD CV ECHO PROCEDURES Final [...] Final Result from Last 3 Months Insurance [facility] PPO [place] PRF [place] Care Teams Sheet Mill Supervisor Relationship Specialty Start Date End Date Frandy Hein MD [address] [place] [address] PCP - General Family Medicine 06/14/20 Duane Yarbrough MD [address] [place] [address] 06/03/17
--- OUTSIDE RECORDS SUMMARY | 2025-01-25 07:44 | XMS_ITS | Clinical Summary ---
Author Organization [facility] Address Pending sale to [facility] [place] [address] Care Team Providers Care Stemmer Machine Name Role Phone None, Provider MD Primary [...] patient's age to complete this topic Insurance [facility] Care Teams Stemmer Machine Relationship Specialty Start Date End Date None, Provider, PCP - General UNKNOWN PHYSICIAN SPECIALTY 05/10/22
--- NOTE | 2025-01-25 08:56 | ED.CHESTPAIN ---
HPI - Chest Pain General Chief Complaint: Chest Pain Stated Complaint: Chest pain Time Seen by Provider: 01/25/25 06:59 History of Present Illness HPI narrative: Patient presenting here with chest pain, started when she woke up this morning, lasted about 45 minutes, with some pain to her back. No nausea vomiting, no shortness of breath, she had an equivocal stress test done recently and was told to come to the ER if she had any chest pain. She is not currently having any symptoms whatsoever. Related Data Home Medications ?Medication ?Instructions ?Recorded ?Confirmed ?Last Taken ?Type estradiol 0.01% (0.1 mg/gram) 0.1 appful vaginal PRN 10/14/20 01/16/24 Unknown History vaginal cream cholecalciferol (vitamin D3) 125 250 mcg PO DAILY 07/19/22 01/16/24 Unknown History mcg (5,000 unit) tablet (Vitamin D3) potassium citrate 99 mg capsule mg PO .QD 07/19/22 01/16/24 Unknown History clonidine HCl 0.2 mg tablet 0.1 mg PO BID 09/13/23 01/16/24 Unknown History Allergies Allergy/AdvReac Type Severity Reaction Status Date / Time fluvastatin AdvReac Intermediate Chest Pain Verified 01/25/25 07:21 Penicillins AdvReac Intermediate Flushing Verified 01/25/25 07:21 propranolol AdvReac Intermediate Other Verified 01/25/25 07:21 ciprofloxacin AdvReac Mild Rash Verified 01/25/25 07:21 Review of Systems Review of Systems: All systems reviewed & are unremarkable except as noted in HPI and below PMFSH Past Medical History Medical History PVC (premature ventricular contraction) Hyperlipidemia Hypertension Surgical History Surgical History History of cardiac radiofrequency ablation (2011) For PVCs History of hysterectomy with bilateral oophorectomy (2014) History of cholecystectomy (1990) Family History Family History Father Hypertension Mother Heart disease Social History Social History Smoking status: Never smoker Second hand tobacco smoke exposure: No Alcohol intake: current Alcohol use details: rare-socially Substance use: never Substance use type: does not use Lack of Transportation: No Lack of Food: Never True Current Housing: Decline to Answer Concerned About Future Housing: Decline to Answer Difficulty Paying Gas/Electric Bills: Decline to Answer Difficulty Paying for Meds: Decline to Answer Currently Unemployed: Decline to Answer Education: Associate Degree Difficulty w/ Childcare or Family Care: No Living arrangements: with family Occupation/Education: occupation Gender identity (if verbalized by the patient): Female Sexual Orientation (if Verbalized by the Patient): Straight or Heterosexual Spiritual care concerns: No Agree to blood products: Yes Exam Narrative: EXAMINATION OF ORGAN SYSTEMS/BODY AREAS: Constitutional: Vital signs per nursing GENERAL:[No acute distress, non-toxic appearing.] HEAD: Normal with no signs of head trauma. EYES: EOMI, conjunctiva normal ENT: Hearing grossly intact LUNGS: Nonlabored breathing. Clear to auscultation bilaterally HEART: [Regular rate and rhythm], strong equal radial and DP pulses bilaterally ABD: [Soft], [nontender to palpation] EXT: Normal range of motion SKIN: [No rashes or lesions.] NEURO: [Alert and oriented x 3. No gross focal sensory or strength deficits.] PSYCH: Normal affect Course Vital Signs Vital signs: Vital Signs Pulse Rate 81 01/25/25 06:38 Respiratory Rate 21 H 01/25/25 06:38 Blood Pressure 184/86 H 01/25/25 06:38 Pulse Oximetry 100 01/25/25 06:38 Pulse Rate 54 L 01/25/25 11:00 Respiratory Rate 17 01/25/25 11:00 Blood Pressure 158/79 H 01/25/25 11:00 Pulse Oximetry 98 01/25/25 11:00 Oxygen Delivery Room Air 01/25/25 06:52 MDM - Chest Pain MDM Narrative Medical decision making narrative: ED COURSE AND MEDICAL DECISION MAKIN-year-old female presenting with chest pain. EKG done in triage negative for acute ischemic changes. Cardiac workup is initiated. EKG: Performed in triage and interpreted by me. Normal sinus rhythm. Rate 65. Normal axis. TX normal. QRS duration normal. QTc normal. No pathologic Q waves. No ST segment elevation or depression to suggest acute ischemia. No RV strain pattern. HEART score is 2 with no acute ischemic changes on EKG and 2 negative troponins making ACS unlikely. Wells low risk with negative PERC making PE unlikely. Presentation not consistent with dissection or aneurysm without radiation of pain or pulse deficits. CXR negative for mediastinal widening. No abdominal pain or signs of sepsis that would be concerning for esophageal perforation or mediastinitis. No cardiomegaly or JVD to suggest pericardial effusion/tamponade. HEART Score: 3. (Risk of major adverse cardiac events over 6 weeks: Score of 0-3 is low risk <2% ; Score of 4-6 is moderate risk ~12-15%; Score of 7-12 is high risk ~50%). - History - 1. (Not suspicious 0; moderately suspicious 1; highly suspicious 2). - EKG - [0]. (No ST changes 0; non-specific ST/T changes 1; ST depression 2). - Age - 1. (<45 = 0; 46-65 = 1; >65 = 2). - Risk factors - 1. (0 factors = 0; 1-2 factors = 1; >2 factors = 2). - Troponin - [0]. (Normal = 0; Indeterminate = 1; High = 2). Repeat EKG EKG - 12-Lead: Performed at 0925. Interpreted by me. [Sinus rhythm]. Rate 55. [Normal] axis. TX-interval [normal]. QRS duration [normal]. QTc [normal]. [No ST segment elevation or depression]. [T-wave normal]. Impression: No EKG evidence of acute ischemia or dysrhythmia. On repeat evaluation just prior to discharge, the patient is no acute distress. I had a long discussion with the patient and with shared decision making, she is comfortable with outpatient management. She was given clear return instructions by myself in person as well as on discharge paperwork. Procedures: Pulse oximetry interpretation - not hypoxic. EKG interpretation. Review of medical records. Lab Data 01/25/25 06:46 01/25/25 06:46 Labs: Lab Results 01/25/25 01/25/25 Range/Units 06:46 09:36 WBC 4.3 L (4.5-10.0) K/mm3 RBC 4.49 (4.2-5.4) M/mm3 Hgb 13.6 (12.0-15.0) g/dL Hct 39.8 (37.0-47.0) % MCV 88.6 (80-100) fl MCH 30.3 (26-34) pg MCHC 34.2 (32-36) g/dl RDW 12.8 (11.5-14.5) % Plt Count 249 (150-375) k/mm3 MPV 10.0 (7.4-10.4) fl Immature Gran % (Auto) 0.2 (0-0.5) % Neut % (Auto) 46.4 (45.5-73.1) % Lymph % (Auto) 41.2 (18.3-44.2) % Ware % (Auto) 9.5 H (2.6-8.5) % Eos % (Auto) 2.5 (0-4.4) % Baso % (Auto) 0.2 (0.2-1.2) % Lymph # (Auto) 1.78 (0.9-3.2) K/mm3 Ware # (Auto) 0.4 (0.1-0.6) K/mm3 Eos # (Auto) 0.1 (0-0.3) K/mm3 Baso # (Auto) 0.0 (0.0-0.1) K/mm3 Abs Immat Gran (auto) 0.01 (0.00-0.031) K/mm3 Absolute Neuts (auto) 2.0 (1.3-6.7) K/mm3 Absolute Nucleated RBC 0.000 (0.0-0.012) K/mm3 Nucleated RBC % 0.0 (0.0-0.2) % PT 13.5 (11.1-14.7) Seconds INR 1.0 APTT 32.5 (22.3-36.8) Seconds Sodium 139 (137-145) mmol/L Potassium 3.1 L (3.4-5.0) mmol/L Chloride 101 (98-107) mmol/L Carbon Dioxide 32 H (22-30) mmol/L Anion Gap 6 (4-12) mmol/L BUN 18 H (7-17) mg/dL Creatinine 0.72 (0.7-1.0) mg/dL Estim Creat Clear Calc 72 ml/min Estimated GFR > 60 (59 - ) Glucose 105 (65-110) mg/dL Calcium 9.8 (8.4-10.2) mg/dL Total Bilirubin 1.9 H (0.2-1.3) mg/dL AST 35 (14-36) U/L ALT 33 (6-35) U/L Alkaline Phosphatase 54 (38-126) U/L Troponin I < 0.012 < 0.012 (0.000-0.034) ng/mL Total Protein 8.4 H (6.3-8.2) g/dL Albumin 4.8 (3.5-5.1) g/dL Lipase 144 (23-300) U/L Discharge Plan Discharge Clinical Impression: Chest pain Patient Disposition: Home Condition: Stable Instructions: Chest Pain (ED) Additional Instructions: Please follow-up with your java portal developer, your labs today thankfully were normal. If you start having chest pain again, or shortness of breath or anything else concerning, please come back to the hospital. Patient Language: Danish Prescriptions: No Action potassium citrate 99 mg capsule PO .QD cholecalciferol (vitamin D3) [Vitamin D3] 125 mcg (5,000 unit) tablet 250 mcg PO DAILY atorvastatin 10 mg tablet 10 mg PO DAILY Qty: 90 3RF clonidine HCl 0.2 mg tablet 0.1 mg PO BID estradiol 0.01 % (0.1 mg/gram) cream 0.1 appful vaginal PRN valsartan-hydrochlorothiazide 320-25 mg tablet 1 tablet PO DAILY Qty: 90 1RF amlodipine 5 mg tablet 5 mg PO BID Qty: 180 3RF Follow-up/Referrals: Frandy Hein MD [Primary Care Provider, Family Practice]
--- NOTE | 2025-01-25 09:17 | ECG_ITS ---
Test Date: 2025-01-25 09:25:38 Measurements Intervals Withams Rate: 55 P: 45 WA: 184 QRS: 37 QRSD: 91 T: 67 QT: 458 QTc: 439 Interpretive Statements SINUS BRADYCARDIA DELAYED PRECORDIAL R/S TRANSITION MINIMAL Q WAVES- INFERIOR LEADS NONSPECIFIC T-WAVE ABNORMALITY- HIGH LATERAL LEADS BASELINE ARTIFACT- I, III, AVL BORDERLINE ECG Compared to ECG 01/25/2025 06:47:16 HEART RATE HAS DECREASED Electronically Signed On 01-25-2025 09:35:47 TURNTABLE WORKER by Ayush Whitley D.O.
[2025-01-25 10:03] LABS: Troponin I < 0.012 ng/mL (0.000-0.034)
== END 2025-01-25 11:01 | disposition home or self-care (01) ==
PROVIDERS: Emergency Medicine; Emergency Provider Emergency Medicine; PCP Family Medicine Adolescent Medicine
DX: R07.9 Chest pain, unspecified (principal); R00.1 Bradycardia, unspecified; E78.5 Hyperlipidemia, unspecified; I10 Essential (primary) hypertension
CPT/HCPCS: 36415; 71046; 80053; 83690; 84484; 85025; 85610; 85730; 93005; 99284; A9270